=== PATIENT | female | born 1960 | race Caucasian/White ===

== ENCOUNTER 2017-08-26 08:06 | Day surgery (SDC) | payer BC ==
[2017-08-16 16:01] VITALS: BMI 41.0
[~2017-08-26] VITALS: Ht 170.2 cm; Wt 120.5 kg
[~2017-08-26 08:06] MED LIST: ASCO500T16 PO; ATOR-22 PO; CEFAZOLIN 3000MG IV PUSH 22.5 ML IV SCH; CHOL1000 PO; INDSR/120 PO; LACTATED RINGER'S 1000ML 1,000 ML IV SCH; NORT25CA PO; PRLSR20 PO; RANI300T2 PO; SENNTAB13 PO; SUMA100T16 PO; TRAM-10 PO; VLT75 PO
[2017-08-26 08:45] VITALS: BP 153/75; PULSE 69; TEMP 36.8; O2SAT 98; Ht 170.2 cm; Wt 120.5 kg
[2017-08-26 09:18] LABS: HEMOGLOBIN A1C 7.7 % (4.5-5.6)
[2017-08-26] MEDS ORDERED: ATROPINE SULFATE 0.1 MG/ML 5ML SYR IV PRN (09:45)
[2017-08-26] MEDS ORDERED: PHENYLEPHRINE 100MCG/ML 5ML SYR IV PRN (09:45)
[2017-08-26] MEDS ORDERED: NALOXONE HCL 0.4 MG/1 ML VIAL/CARP IV PRN (09:45)
[2017-08-26] MEDS ORDERED: FLUMAZENIL 0.1 MG/1 ML 10 ML VIAL IV PRN (09:45)
[2017-08-26] MEDS ORDERED: ONDANSETRON INJ 2 MG/ML 2 ML VIAL IV PRN ×2 (09:45→12:45)
[2017-08-26] MEDS ORDERED: HYDROmorphone INJ 2 MG/ML SYR/VIAL IV PRN (09:45)
[2017-08-26] MEDS ORDERED: MEPERIDINE HCL 25 MG/ML CARP IV PRN (09:45)
[2017-08-26] MEDS ORDERED: FENTANYL CITRATE INJ 50 MCG/1 ML 2 ML VIAL IV PRN (09:45)
[2017-08-26] MEDS ORDERED: EpHEDrine SULFATE INJ 50 MG/ML AMP IV PRN (09:45)
[2017-08-26] MEDS ORDERED: LABETALOL HCL IV 5 MG/ML 20ML IV PRN (09:45)
[2017-08-26] MEDS ORDERED: MIDAZOLAM HCL 1 MG/ML 2ML VIAL ONE (09:57)
[2017-08-26] MEDS ORDERED: FENTANYL CITRATE INJ 50 MCG/1 ML 2 ML VIAL ONE (09:57)
[2017-08-26] MEDS ORDERED: PROPOFOL IV EMULSION 10 MG/ML 20 ML VIAL IV ONE (09:57)
[2017-08-26] MEDS ORDERED: LIDOCAINE HCL 2% 2 ML VIAL (20MG/ML) ONE (09:57)
[2017-08-26] MEDS ORDERED: ROCURONIUM BROMIDE 10 MG/ML 5 ML VIAL IV ONE ×5 (09:57→11:46)
[2017-08-26] MEDS ORDERED: BUPIVACAINE 0.5 % 5 MG/1 ML MPF 30ML VIAL ONE (10:43)
[2017-08-26] MEDS ORDERED: HEPARIN SOD (PORCINE) 1000 UNIT/ML 10 ML VIAL ONE (10:43)
[2017-08-26] MEDS ORDERED: CEFAZOLIN SOD 1 GM VIAL ONE (10:44)
--- NOTE | 2017-08-26 10:48 | History & Physical Bridge Note ---
H&P Re-Evaluation Bridge Note: I have examined the patient, reviewed the History & Physical and in the interval since the performance of the History & Physical I have noted the following changes of clinical significance: No changes noted
[2017-08-26] MEDS ORDERED: DEXAMETHASONE SOD INJ 4 MG/ML VIAL ONE (11:46)
[2017-08-26] MEDS ORDERED: EpHEDrine SULFATE 50MG/5ML SYR ONE (11:46)
[2017-08-26] MEDS ORDERED: NEOSTIGMINE METHYLSULFATE 5 MG/5 ML SYR ONE (11:46)
[2017-08-26] MEDS ORDERED: ONDANSETRON INJ 2 MG/ML 2 ML VIAL ONE (11:46)
[2017-08-26] MEDS ORDERED: GLYCOPYRROLATE INJ 0.2 MG/ML VIAL ONE (11:46)
[2017-08-26] MEDS ORDERED: KETOROLAC TROMETHAMINE 30 MG/ML VIAL ONE (12:25)
[2017-08-26] MEDS ORDERED: OXYC-57 PO (12:30)
--- NOTE | 2017-08-26 12:31 | [facility] Post Operative Brief Note ---
Immediate Operative Summary Operative Date Aug 26, 2017. Pre-Operative Diagnosis Cholecystitis Post-Operative Diagnosis Same Procedure(s) Performed Laparoscopic Cholecystectomy Surgeon Dr Connor Swimming Pool Salesperson Surgeon(s) Nicole Smith PA-C Estimated Blood Loss 5ml Findings Consistent with Post-Op Diagnosis Specimens A. Gallbladder Drains None Anesthesia Type General Complication(s) none
--- NOTE | 2017-08-26 12:35 | Discharge Instructions ---
Discharge Instructions Date of Service Aug 26, 2017. Admission Reason for Admission: Cholelithiasis Discharge Discharge Diagnosis / Problem: same Discharge Goals Goal(s): Decrease discomfort, Improve function Activity Recommendations Activity Limitations: per Instructions/Follow-up section No heavy lifting over 10 pounds for 2 weeks No strenuous activity until cleared by surgeon No submerging incisions underwater for 2 weeks (no bathing, swimming, or hot tubs) No driving while taking narcotic pain medication or until you are pain free . Instructions / Follow-Up Instructions / Follow-Up You may shower in 24 hours. Leave steri strips on incision for 7 days and then remove. They may fall off on their own that is okay. Walking and light activity is encouraged to prevent blood clots forming You will be given narcotic pain medication as needed for moderate to severe pain. This medication may make you drowsy and can cause constipation. You can take OTC stool softener such as Colace to combat constipation. You may take extra strength Ibuprofen in between Percocet as needed for mild pain. When you are no longer taking Percocet you may take extra strength Tylenol as needed for pain. Follow-up in surgical office in 2 weeks, please call office at [phone] if you do not already have an appointment. Current Hospital Diet Patient's current hospital diet: Discharge Diet Recommended Diet: Regular Diet Procedures Procedures Performed: Laparoscopic Cholecystectomy Pending Studies Studies pending at discharge: yes List of pending studies: Gallbladder pathology, will be reviewed at follow up visit Laboratory Results Hemoglobin A1c Test 08/26/17 09:02 Range/Units Estimated Average Glucose 174 mg/dl Hemoglobin A1c 7.7 H 4.5-5.6 % Medical Emergencies . Who to Call and When: Medical Emergencies: If at any time you feel your situation is an emergency, please call 911 immediately. . Non-Emergent Contact Non-Emergency issues call your: Primary Care Provider, Surgeon Call Non-Emergent contact if: you have a fever, temperature is above 101, your pain is not controlled, your pain is worsening, your pain is unusual for you, wound has increased drainage, wound has increased redness, wound has increased pain . "Provider Documentation" section prepared by Nicole Smith. . [place] Drug Monitoring Program Search Results: patient reviewed within database, no issues identified
[2017-08-26] MEDS ORDERED: OXYCODONE/ACETAMINOPHEN 5-325 TAB PO PRN ×2 (12:45)
[2017-08-26] MEDS ORDERED: MoRPHine SULFATE 4 MG/ML 1 ML CARP\\VIAL IV PRN (12:45)
[2017-08-26] MEDS ORDERED: ACETAMINOPHEN 325 MG TAB PO PRN (12:45)
[2017-08-26] MEDS ORDERED: MoRPHine SULFATE 2 MG/ML CARP IV PRN ×2 (12:45)
--- NOTE | 2017-08-26 12:48 | Anesthesiology Progress Note ---
Anesthesia Post Op Note Date & Time Aug 26, 2017 at 12:48 Vital Signs Pain Intensity: 3 Vital Signs Past 12 Hours Date Time Temp Pulse Resp B/P (MAP) Pulse Ox O2 Delivery O2 Flow Rate FiO2 08/26/17 12:40 53 16 124/70 96 Oxymask 8 08/26/17 12:30 55 16 124/73 96 Oxymask 8 08/26/17 12:20 36.5 58 16 142/76 95 Oxymask 8 08/26/17 08:45 36.8 69 20 153/75 (101) 98 Room Air Notes Mental Status: alert / awake / arousable, participated in evaluation Pt Amnestic to Procedure: Yes Nausea / Vomiting: adequately controlled Pain: adequately controlled Airway Patency, RR, SpO2: stable & adequate BP & HR: stable & adequate Hydration State: stable & adequate Anesthetic Complications: no major complications apparent
--- NOTE | 2017-08-26 12:55 | OPERATIVE REPORT ---
DATE OF OPERATION: 08/26/2017 PREOPERATIVE DIAGNOSES: Cholelithiasis, chronic cholecystitis. POSTOPERATIVE DIAGNOSES: Same. PROCEDURE: Laparoscopic cholecystectomy. SURGEON: Miguel Connor MD. TOLL GATE TENDER: Nicole Smith PA-C. FINDINGS: The gallbladder had multiple adhesions of the omentum and of the duodenum. They were flimsy. The cystic duct was very narrow. The gallbladder was not dilated. There was no thickening of the wall. The liver was mild to moderately enlarged. The surface of the liver was smooth. The visible bowel appeared normal. TECHNIQUE: The patient was given a general anesthetic and the area was prepped and draped in the usual sterile fashion. A transverse incision was made below the umbilicus, carried down through the subcutaneous tissue to the fascia, which was grasped with 2 Diana clamps and incised between. The peritoneum was identified, incised, and the introducer was placed bluntly. The abdomen was then insufflated to a pressure of 15 mmHg with carbon dioxide. The upper midline, midclavicular and anterior axillary introducers were placed under direct vision through small skin incisions. Traction was placed on the gallbladder and the adhesions over the body and infundibulum portion of the gallbladder were taken down. Those were omental adhesions. That was done with blunt and cautery dissection where appropriate. When we got down to the infundibulum, there were adhesions of the duodenum to the infundibulum and neck of the gallbladder area. These adhesions were flimsy and were able to be taken down with blunt dissection only. There was no cautery used for that portion of the dissection. Once these were taken down, I was able to visualize the infundibulum and the gallbladder was elevated. Traction was placed on the infundibulum of the peritoneum and the lateral side was opened and peeled down towards the common bile duct. I then worked into the triangle of Calot and opened it. The infundibulum was dissected away from the liver on the lateral and medial side allowing for better mobility. Further fatty tissue and connective tissue was peeled down towards the common bile duct exposing the cystic duct. Cystic duct was then skeletonized and isolated in 360 degrees. Further dissection in the triangle of Calot and of the infundibulum away from the liver provided a good window. It also allowed me to confidently identify the cystic duct gallbladder junction. Three clips were placed on the proximal cystic duct, 1 near the gallbladder and it was divided. The cystic artery was then seen and isolated in the triangle of Calot. It was clamped twice proximally once near the gallbladder and divided. There was an additional tubular structure that was either a posterior branch of the artery or a large lymphatic. It was isolated, clamped and divided. The gallbladder was then peeled off the liver bed using electrocautery. It was placed into an Endobag and brought out through the upper midline incision with ease. That introducer was replaced. The liver edge was elevated. The subdiaphragmatic and subhepatic spaces were irrigated and the irrigation removed. The gallbladder bed of the liver was inspected. There was no bleeding. The previously placed clips were inspected and were intact. The gas was allowed to escape and the introducers were removed. The fascia of the umbilical and upper midline introducer sites was closed with an interrupted 0 Vicryl and skin of all the incisions was closed with 4-0 Monocryl in either an interrupted or running subcuticular fashion. The skin was anesthetized with 0.5% Marcaine. The skin was cleansed, dried, benzoin placed. Steri-Strips applied. The estimated blood loss was 5 mL. Sponge, needle and instrument counts were correct prior to closure. The patient tolerated the surgical procedure without complication and was transferred to recovery. I attest to the content of the Intraoperative Record and any orders documented therein. Any exception s are noted below.
[2017-08-26 13:10] VITALS: BP 123/59; PULSE 56; PULSE 68; TEMP 36.6; O2SAT 94
[2017-08-26 13:40] VITALS: BP 108/55; PULSE 59; TEMP 36.6; O2SAT 97
[2017-08-26] MEDS ORDERED: OXYCODONE/ACETAMINOPHEN 5-325 TAB ONE (13:46)
[2017-08-26 14:10] VITALS: BP 110/62; PULSE 63; TEMP 37.1; O2SAT 94
[2017-08-26 14:40] VITALS: BP 143/78; PULSE 60; TEMP 36.8; O2SAT 94
== END 2017-08-26 14:56 | disposition home or self-care (01) ==
LOC: C.ACU 08:06
PROVIDERS: ATTEND Surgery
DX: K80.10 Calculus of gallbladder with chronic cholecystitis without obstruction (principal); E78.5 Hyperlipidemia, unspecified; K21.9 Gastro-esophageal reflux disease without esophagitis; M19.90 Unspecified osteoarthritis, unspecified site; Z79.899 Other long term (current) drug therapy; Z98.890 Other specified postprocedural states

== ENCOUNTER 2018-11-28 04:46 | Inpatient (IN) ==
--- NOTE | 2018-11-10 15:21 | PAT Medication Instructions ---
Medication Instructions Date of Service November 10, 2018 Home Medications atorvastatin 20 mg PO HS diclofenac sodium 75 mg PO BID docusate sodium [Stool Softener] 100 mg PO BID metformin 850 mg PO BID nortriptyline 25 mg PO HS omeprazole 40 mg PO HS propranolol 120 mg PO HS ranitidine HCl 300 mg PO QAM ASK your surgeon for instructions diclofenac sodium 75 mg PO BID DO NOT take the morning of surgery docusate sodium [Stool Softener] 100 mg PO BID metformin 850 mg PO BID Take morning of surgery With a small sip of water, OTHERWISE NOTHING TO EAT OR DRINK AFTER MIDNIGHT: ranitidine HCl 300 mg PO QAM Take evening before surgery atorvastatin 20 mg PO HS docusate sodium [Stool Softener] 100 mg PO BID metformin 850 mg PO BID nortriptyline 25 mg PO HS omeprazole 40 mg PO HS propranolol 120 mg PO HS Other Notes If you have any questions please call us at [phone] or [phone] or [phone] or [phone]
--- NOTE | 2018-11-10 15:30 | Anesthesiology Consultation ---
Date of Service November 10, 2018 Assessment & Plan (1) Encounter for pre-operative examination: CHECK BSG AM DOS S/P LAP GIANCARLO 2017 [facility] = MAC 3, ETT 7.0 GV I, ATRAUMATIC DVL X 1 Chart Review Chart Review: Acceptable Risk for Surgery and Patient seen in Pre Admission Testing Teaching & Discussion Instructed NPO after midnight before surgery, except medications with 15 cc of water. Medication instructions provided according to the PAT guidelines. History Surgery Operation Date: 11/28/18 12:30 Proposed Procedures p Left Total Hip Replacement - Larry Dyson MD Height/Weight Height: 5 ft 7 in Weight: 113.4 kg Allergies Allergy/AdvReac Type Severity Reaction Status Date / Time No Known Allergies Allergy Unverified 11/06/18 15:32 Medications Home Medications Medication Instructions Recorded Confirmed Last Taken atorvastatin 20 mg PO HS 11/06/18 11/06/18 11/05/18 diclofenac sodium 75 mg PO BID 11/06/18 11/06/18 11/06/18 docusate sodium [Stool Softener] 100 mg PO BID 11/06/18 11/06/18 11/06/18 metformin 850 mg PO BID 11/06/18 11/06/18 11/06/18 nortriptyline 25 mg PO HS 11/06/18 11/06/18 11/05/18 omeprazole 40 mg PO HS 11/06/18 11/06/18 11/05/18 propranolol 120 mg PO HS 11/06/18 11/06/18 11/05/18 ranitidine HCl 300 mg PO QA 11/06/18 11/06/18 11/06/18 Past Medical History Medical History Acid reflux Diabetes Fatty liver High cholesterol History of back problems HX 2 BULGING DISCS AND INJECTIONS 19 YR AGO Migraine Obesity Snores LOUD, PT REPORTS SLEEP STUDY WAS SUGGESTED BUT NOT COMPLETED Exercise / Class Metabolic Activity III < 4 Walking/Shop/Light housework (Limited activity, no CP or SOB with stairs but doesn't do often.) Past Family History Family History Father Family history of renal cancer Family history of bladder cancer Aunt Family history of breast cancer in mother Family history of skin cancer Past Surgical History Surgical History History of cholecystectomy History of colonoscopy History of endoscopy History of tubal ligation Past Anesthesia History No Hx of Anesthesia Complications and No Family Hx of Anesthesia Complications S/P LAP GIANCARLO 2017 [facility] = MAC 3, ETT 7.0 GV I, ATRAUMATIC DVL X 1 History of PONV No Hx of PONV and No Hx of Motion Sickness Social History Smoking Status: Never smoker Do You Dip or Chew Tobacco: No Hx Alcohol Use: No Hx Substance Use: No substance use type: does not use Review of Systems Pt denies any recent chest pain, shortness of breath, palpitations, cough, fever or URI. Physical Exam Vital Signs BP: 111/76 P: 64bpm SPO2: 98% RA T: 98.0 F R: 16 ENMT Mouth: + dentures and + edentulous Thyromental Distance: < 3.5 Finger Breadths (3) Mallampati Class: III Neck normal visual inspection; neck extension not limited Respiratory normal respiratory effort Auscultation: lungs clear to auscultation bilaterally Cardiovascular Rate/Rhythm: regular rate and regular rhythm Heart Sounds: no murmur Extremities: no edema Testing Laboratory Results 11/10/18 15:24 11/10/18 15:24 11/10/18 11/10/18 11/10/18 15:24 15:24 15:24 PT 10.2 INR 1.0 APTT 24.2 Hemoglobin A1c 6.7 H Blood Type B Positive Antibody Screen NEGATIVE Electrocardiogram Date: 11/10/18 Findings: + NSR @ (62) Chest X-Ray Date: 11/10/18 Findings: + NAD
[2018-11-10 16:09] LABS: Basophils # (auto) 0.03 K/uL (0-0.2); Basophils % (auto) 0.6 %; Eosinophils # (auto) 0.22 K/uL (0-0.5); Eosinophils % (auto) 4.4 %; Hematocrit (blood only) 38.2 % (37-47); Hemoglobin 12.5 g/dL (12.0-16.0); Lymphocytes # (auto) 1.82 K/uL (1.2-3.4); Lymphocytes % (auto) 36.3 %; Mean Corpuscular Hgb Conc 32.7 g/dL (32-36); Mean Corpuscular Volume 88.4 fL (80-100); Mean Platelet Volume 9.4 fL (7.4-10.4); Monocytes # (auto) 0.38 K/uL (0.11-0.59); Monocytes % (auto) 7.6 %; Neutrophils # (auto) 2.56 K/uL (1.4-6.5); Neutrophils % (auto) 51.1 %; Platelet Count 205 K/uL (130-400); RDW Coefficient of Variation 12.5 % (11.5-14.5); RDW Standard Deviation 40.2 fL (36.4-46.3); Red Blood Count 4.32 M/uL (4.2-5.4); White Blood Count 5.01 K/uL (4.8-10.8)
[2018-11-10 16:17] LABS: BUN Creatinine Ratio 15.6 (10-20); Calcium 9.5 mg/dl (8.5-10.1); Creatinine Clr Calc Pharmacy 79.7 ml/min; Est GFR (African American) 71.9; Est GFR (Non-African American) 62.1; Potassium 4.9 mmol/L (3.5-5.1)
[2018-11-10 16:23] LABS: Partial Thromboplastin Ratio 0.9; Partial Thromboplastin Time 24.2 Seconds (21.0-31.0); Prothrombin Time 10.2 Seconds (9.0-12.0)
--- NOTE | 2018-11-10 19:03 | XRay Report ---
TWO VIEW CHEST CLINICAL HISTORY: Preoperative examination. FINDINGS: PA and lateral chest radiographs are obtained. No prior studies are available for compariso n at the time of dictation. The cardiomediastinal silhouette is unremarkable. The lungs and pleural spaces are clear. There is no pneumothorax. The bony thorax appears intact. Surgical clips are noted in the upper abdomen. IMPRESSION: No active disease in the chest. Electronically signed by: Konstantin Chris M.D. 11/10/2018 7:02 PM
[2018-11-11 06:06] LABS: Estimated Average Glucose 146 mg/dl; Hemoglobin A1C 6.7 % (4.5-5.6)
--- NOTE | 2018-11-22 09:59 | History and Physical Report ---
DATE OF ADMISSION: 11/28/2018 CHIEF COMPLAINT: Bilateral hip pain and discomfort, left side greater than right. HISTORY OF PRESENT ILLNESS: The patient is a 58-year-old white female [place] who presents for treatment of her hips. She has got a 1 year history of significantly increasing pain and discomfort in both hips, left side a bit worse than the right. She describes pain in the groin area, it radiates down to her knee. She has been through various medicines which have caused GI irritation. They take the edge off at best. She does limp. The more she walks, the more she limps. She has difficulty putting her shoes and socks on. Cannot walk more than a couple blocks. She would like to proceed with surgical treatment. PAST MEDICAL HISTORY: Significant for: 1. Diabetes with hemoglobin A1c of 6.7. 2. Elevated cholesterol. 3. Gastroesophageal reflux disease. 4. Obesity, BMI of 40. 5. Back pain. PAST SURGICAL HISTORY: Previous surgeries include: 1. Tubal ligation. 2. Cholecystectomy. ALLERGIES: None. CURRENT MEDICINES: 1. Ranitidine. 2. Diclofenac. 3. Metformin. 4. Stool softener. 5. Lipitor. 6. Propranolol. 7. Nortriptyline. 8. Omeprazole. SOCIAL HISTORY: A 58-year-old white female. She is from [place]. She works as a labor. She has 3 children. Does not smoke. FAMILY HISTORY: Significant for breast cancer, renal cancer and diabetes. REVIEW OF SYSTEMS: Significant for diabetes for a year. No chest pain or shortness of breath. No history of DVT or PE. No known bleeding problems. PHYSICAL EXAMINATION: GENERAL: Shows a pleasant middle-aged female, looks to be in reasonably good health. HEENT: Benign. NECK: Supple, no lymphadenopathy. LUNGS: Clear to auscultation. HEART: Has a regular rate and rhythm. ABDOMEN: Soft, nontender, nondistended. EXTREMITIES: Grossly neurovascularly intact except as follows: Examination of the hips reveal patient walks with an antalgic gait. She does limp a little bit more on the left side. Leg lengths clinically appear pretty equal. She does have pain and stiffness with hip motion. I can internally rotate to neutral on both sides and external rotation 25 degrees. This recreates pain. No knee effusions in either side. She is neurologically intact. X-RAYS: X-rays reveal advanced bilateral hip DJD. She has got complete loss of the joint space on both sides. She has got cystic changes in the femoral head and acetabulum. This has progressed significantly over the past year. ASSESSMENT: A 58-year-old white female with advanced bilateral hip degenerative joint disease, gotten significantly worse over the past year. She has failed conservative treatment. She would like to proceed with left hip replacement. PLAN: We will take her to the operating room and do a left total hip replacement. The risks and benefits of this procedure were explained to the patient including but not limited to DVT, PE, , infection, neurological injury, vascular injury, bleeding problem, pain, limited range of motion, stiffness, failure to relieve symptoms, incomplete relief of symptoms, need for further surgery in future, fracture, leg length inequality, nerve palsy, etc. The patient understands and desires to proceed. Informed consent was obtained. We did talk about holding her metformin the morning of surgery and diclofenac 10 days preop. She takes propranolol for headaches, but we will have her take that in the morning regardless. She is planning to be discharged home using [facility] home health program.
[2018-11-28] MEDS ORDERED: LR 500ML BOLUS, THEN 15ML/HR IV SCH (06:00)
[2018-11-28] MEDS ORDERED: FAMOTIDINE 20 MG TAB PO SCH (06:00)
[2018-11-28] MEDS ORDERED: GABAPENTIN 300 MG x 2 PO SCH (06:00)
[2018-11-28] MEDS ORDERED: SCOPOLAMINE 1.5 MG TDSY TD SCH (06:00)
[2018-11-28] MEDS ORDERED: METOCLOPRAMIDE HCL 10 MG TABLET PO SCH (06:00)
[2018-11-28] MEDS ORDERED: LR 60ML/HR IV SCH (06:00)
[2018-11-28] MEDS ORDERED: CEFAZOLIN 2000MG 2,000 MG/15 ML SYR IV SCH (06:00)
[2018-11-28] MEDS ORDERED: TRANEXAMIC ACID 1,000 MG **IV Pre-op IV SCH (06:00)
[2018-11-28] MEDS ORDERED: ACETAMINOPHEN 500 MG TAB PO SCH (06:00)
[2018-11-28] MEDS ORDERED: LIDOCAINE HCL 2% 2 ML VIAL/AMP(20MG/ML) INFIL ONE (06:20)
[2018-11-28] MEDS ORDERED: PROPOFOL IV EMULSION 10 MG/ML 20 ML VIAL IV ONE ×2 (06:21→07:31)
[2018-11-28] MEDS ORDERED: MIDAZOLAM HCL 1 MG/ML 2ML VIAL ONE (06:21)
[2018-11-28] MEDS ORDERED: fentaNYL citrate 100 MCG/2 ML VIAL ONE (06:21)
[2018-11-28] MEDS ORDERED: BUPIVACAINE 0.5 % 5 MG/1 ML PF 10ML VIAL ONE (06:28)
[2018-11-28] MEDS ORDERED: MoRPHine SULFATE PF 1 MG/ML 10 ML AMP/VIAL ONE (06:34)
[2018-11-28] MEDS ORDERED: BACITRACIN INJ 50,000 UNIT VIAL ONE (06:35)
[2018-11-28] MEDS ORDERED: BUPIVACAINE/EPINEPHRINE 0.5% MPF 1:200,000 30 ML VIAL ONE (06:35)
[2018-11-28] MEDS ORDERED: LACTATED RINGER'S 500 ML IV PRN (06:38)
[2018-11-28] MEDS ORDERED: MoRPHine SULFATE 2 MG/ML CARP IV PRN (06:38)
[2018-11-28] MEDS ORDERED: MoRPHine SULFATE PF 1 MG/ML 10 ML AMP/VIAL INT SPINAL ONE (06:38)
[2018-11-28] MEDS ORDERED: NALOXONE HCL 1 MG in SODIUM CHLORIDE 0.9% 1000ML 1,000 ML IV PRN (06:38)
[2018-11-28] MEDS ORDERED: DiphenhydrAMINE HCL 50 MG/ML VIAL IV PRN (06:38)
[2018-11-28] MEDS ORDERED: PROMETHAZINE HCL 12.5 MG in SODIUM CHLORIDE 0.9% 50 ML IV PRN (06:38)
[2018-11-28] MEDS ORDERED: NALBUPHINE HCL INJ 10 MG/ML AMP IV PRN (06:38)
[2018-11-28] MEDS ORDERED: NALOXONE HCL 0.08 MG in SYRINGE 1.8 ML IV PRN (06:38)
[2018-11-28] MEDS ORDERED: NALOXONE HCL 0.4 MG/1 ML VIAL/CARP IV PRN ×2 (06:38→11:08)
[2018-11-28] MEDS ORDERED: ONDANSETRON INJ 2 MG/ML 2 ML VIAL IV PRN ×2 (06:38→11:08)
[2018-11-28] MEDS ORDERED: NO NARCOTICS OR SEDATIVES SCH (06:45)
[2018-11-28] MEDS ORDERED: SODIUM CHLORIDE 0.9% 1000ML 1,000 ML IV SCH (06:45)
--- NOTE | 2018-11-28 06:50 | History & Physical Bridge Note ---
Date of Service November 28, 2018 History & Physical Bridge Note I have examined the patient, reviewed the History & Physical and in the interval since the performance of the History & Physical I have noted the following changes of clinical significance: no changes noted
[2018-11-28] MEDS ORDERED: DEXAMETHASONE SOD INJ 4 MG/ML VIAL ONE (07:20)
[2018-11-28] MEDS ORDERED: ONDANSETRON INJ 2 MG/ML 2 ML VIAL ONE (07:20)
[2018-11-28] MEDS ORDERED: PHENYLEPHRINE 100MCG/ML 5ML SYR ONE (07:20)
[2018-11-28] MEDS ORDERED: GLYCOPYRROLATE 0.2 MG/ML VIAL ONE (07:46)
[2018-11-28] MEDS ORDERED: ATROPINE SO4 1 MG/ML 1ML VIAL ONE (07:46)
--- NOTE | 2018-11-28 08:29 | Post Operative Brief Note ---
Immediate Post Op Note v1 Date of Surgery November 28, 2018 Pre & Post Diagnosis Operation Date: 11/28/18 07:00 Pre-Op Diagnosis: Left Hip Advanced Degenerative Joint Disease Post-Op Diagnosis: Left Hip Advanced Degenerative Joint Disease Procedure Operation Date: 11/28/18 07:00 Actual Procedures p Left Total Hip Arthroplasty--Uncemented(Left) - Larry Dyson MD Surgeon Larry Dyson MD Shipping And Receiving Weigher Stefani,PAC Estimated Blood Loss 300 Findings Consistent with Post-Op Diagnosis Fluids 1000 cc Specimens Left Femoral Head Drains Jane Catheter (A 16 Bulgarian jane catheter was inserted by ED Willis, without difficulty, clear yellow urine obtained, output to be monitored by Jennifer brock.) Anesthesia Type Spinal MAC Complications none Disposition Accompanied Patient To Recovery: Yes Disposition: Recovery Room
[2018-11-28] MEDS ORDERED: ALBUMIN HUMAN 5% 12.5 GM/250 ML VIAL IV ONE (08:51)
[2018-11-28] MEDS: ePHEDrine sulfate 50 MG/ML AMP IV PRN ×2 (08:51→09:09)
[2018-11-28] MEDS ORDERED: ALBUMIN 5% 250 ML IV SCH (09:00)
--- NOTE | 2018-11-28 09:22 | XRay Report ---
XR hip 1V LT w pelvis HISTORY: 58 years-old Female IN PACU - A/P PELVIS and LATERAL HIP left hip total joint arthroplasty . History of degenerative joint disease COMPARISON: Pelvis and left hip radiographs 10/20/2018 TECHNIQUE: AP view of the pelvis with crosstable lateral view of the left hip FINDINGS: Left hip total joint arthroplasty demonstrates satisfactory alignment. Expected postsurgical soft tis eileen swelling and deep tissue air with lateral skin ty about the left hip. No acute fracture or r etained foreign body. Moderate to severe degenerative changes about the right hip. IMPRESSION: Satisfactory alignment of the left hip total joint arthroplasty. The above report was generated using voice recognition software. It may contain grammatical, syntax o r spelling errors. Electronically signed by: Jim Kenyon M.D. 11/28/2018 9:21 AM
--- NOTE | 2018-11-28 09:30 | Operative Report ---
DATE OF OPERATION: 11/28/2018 SURGEON: Larry Dyson MD PAPER SEALER: ED Padilla PREOPERATIVE DIAGNOSIS: Left hip degenerative joint disease. POSTOPERATIVE DIAGNOSIS: Left hip degenerative joint disease. PROCEDURE PERFORMED: Left uncemented ceramic on highly cross-linked polyethylene total hip arthroplasty. COMPLICATIONS: None. ESTIMATED BLOOD LOSS: 300 mL. FLUID REPLACEMENT: 1000 mL crystalloid fluid replacement. ANESTHESIA: Spinal. DRAINS: None. SPECIMENS: Left femoral head sent for pathology. OPERATIVE INDICATIONS: The patient is a 58-year-old white female who has had a fairly long history of bilateral hip pain and discomfort, left side greater than right. She has been through extensive conservative treatment without adequate relief. She actually had problems with GI irritation due to NSAIDs. X-ray showed advanced left hip DJD. She would like to proceed with surgical treatment. OPERATIVE FINDINGS: Operative findings revealed advanced left hip DJD. She had extensive grade 4 changes of the femoral head and acetabulum. Fairly significant medial osteophyte. Moderate size joint effusion. OPERATIVE IMPLANTS: Operative implants consist of: 1. A Biomet G7 size 52 mm acetabular shell. 2. An apex hole eliminator. 3. 6.5 cancellous acetabular screws, 1 at 35 mm length and 1 at 25 mm length. 4. A highly cross-linked polyethylene liner with 52 mm outer diameter and 32 mm inner diameter. 5. DePuy Corail size 10 KLA femoral stem. 6. A +5/32 mm ceramic articular ball. OPERATIVE PROCEDURE: The patient was taken to the operating room, identified and placed on the operating table in supine position. All contact areas were appropriately padded. IV antibiotics provided by anesthesia team. A spinal anesthetic had been implemented in the holding area. Hatfield catheter was placed in sterile fashion. The patient was then placed in the right lateral decubitus position. An axillary roll was placed. Stlberg hip positioner was used for positioning. Left hip and leg were then prepped and draped in usual sterile fashion. A posterolateral approach to the left hip was then performed through a curvilinear incision centered over the greater trochanter. Sharp dissection was carried through subcutaneous tissue down to the level of the IT band and gluteal fascia. There was a very large thick soft tissue envelope. The IT band and gluteal fascia were then incised longitudinally in line with skin incision. The underlying greater trochanteric bursa was excised. The piriformis and external rotators were carefully tagged and taken off the posterior aspect of the hip joint capsule. A posterior capsulotomy was then performed leaving a large flap for later repair. Hip was internally rotated and dislocated. Femoral neck osteotomy cut was made with the final cut about 5 mm above the lesser trochanter. Femoral head was removed and sent for pathology. The femur was retracted anteriorly. Attention was then drawn to the acetabulum. The acetabular labrum was excised. The pulvinar fat was excised. Sequential reaming of the acetabulum was then performed beginning with a size 45 and progressing up to 51. We tried to put the 52 cup in, but could not get in, so I did ream to 52 and then placed the 52 cup. It was fixed with two 6.5 cancellous acetabular screws. A trial liner was placed. Attention was then drawn to the femur. The proximal femur was entered with a cookie cutter followed by canal finder. I then broached beginning with a size 8 and progressing up to a 10. The 10 fit quite tightly and had good rotational control. We have not elected to use this implant. The calcar reamer was used to smoothen off the calcar. I then trialed the hip and +5 articular ball seemed to recreate soft tissue fairly good and the hip was fully stable in full extension and external rotation, flexion to 90 degrees, internal rotation over 50 degrees. There was still a little bit soft tissue laxity, but I did not feel like I could really lengthen her any further due to a leg length issues. We elected to place these implants. All trial implants were removed. An apex hole eliminator was placed. Highly cross-linked polyethylene liner was placed. A DePuy Corail size 10 KLA femoral stem was impacted in position. The +5/32 mm ceramic articular ball was placed. Hip was located and once again found to be stable. Attention was then drawn toward closing. The wound was irrigated with copious amounts of pulsatile lavage solution. I did inject locally with about 60 mL of 0.5% Marcaine with epinephrine. The posterior capsule and external rotators were then repaired through drill holes in the posterior trochanter with #2 Ti-Cron suture. The IT band and gluteal fascia were then closed with #1 PDS suture in running fashion. The subcutaneous tissues were then closed with 2 layers with the deep layer #2 Vicryl suture in buried interrupted fashion followed by subQ tissues and with 2-0 Dexon suture in a subcuticular fashion. The skin was closed with ty. Sterile dressing composed of Xeroform, 4 x 4s, sterile ABD pad and foam tape was applied. The patient was then transferred to the recovery room in stable condition. The patient tolerated the procedure well with no complications. All needle and sponge counts were correct at the end of the operation. I attest to the content of the Intraoperative Record and any orders documented therein. Any exception s are noted below.
--- NOTE | 2018-11-28 10:42 | Anesthesiology Progress Note ---
Date of Service November 28, 2018 Anesthesia Post Procedure Vital Signs Vital Signs: Temp Pulse Pulse Resp BP Pulse Ox 11/28/18 10:30 71 19 111/63 100 11/28/18 10:20 36.2 C L 69 15 103/57 L 100 11/28/18 10:10 69 18 98/62 L 100 11/28/18 10:00 67 16 102/59 L 100 11/28/18 09:50 69 18 98/53 L 100 11/28/18 09:40 68 20 100/52 L 100 11/28/18 09:30 69 19 99/56 L 100 11/28/18 09:20 69 16 104/53 L 100 11/28/18 09:10 72 18 104/57 L 100 11/28/18 09:00 74 19 89/37 L 100 11/28/18 08:50 76 17 83/56 L 100 11/28/18 08:40 76 17 79/52 L 100 11/28/18 08:32 36.3 C L 76 17 71/42 L 100 11/28/18 05:55 36.8 C 68 20 120/75 95 Pain Intensity Left Hip: Pain Intensity: 0 Transfer of Care Handoff Completed per policy Notes Mental Status: alert / awake / arousable Patient Amnestic to Procedure: Yes Nausea / Vomiting: adequately controlled Pain: adequately controlled Airway Patency, RR, SpO2: stable & adequate (Improved after fluids and prolonged PACU stay. Pt never symptomaric from slightly lower bp) BP & HR: stable & adequate Hydration State: stable & adequate Neuraxial Anesthesia: was administered and sensory block is resolving Anesthetic Complications: no major complications apparent and Pt Satisfied with anesthetic care
[2018-11-28] MEDS ORDERED: DEXTROSE 50% 50 ML SYRINGE IV PRN (11:08)
[2018-11-28] MEDS ORDERED: PHARMACY GLYCEMIC MGMT CONSULT STA (11:08)
[2018-11-28] MEDS ORDERED: GLUCOSE 40% GEL 15 GM TUBE PO PRN (11:08)
[2018-11-28] MEDS ORDERED: GLUCAGON FOR INJ 1 MG VIAL SQ PRN (11:08)
[2018-11-28] MEDS ORDERED: OXYCODONE HCL IR 5 MG TAB (IMMEDIATE RELEASE) PO PRN (11:08)
[2018-11-28] MEDS ORDERED: MAGNESIUM HYDROXIDE SUSP 30 ML UDC PO PRN (11:08)
[2018-11-28] MEDS ORDERED: METOCLOPRAMIDE HCL INJ 5 MG/ML 2 ML VIAL IV PRN (11:08)
[2018-11-28] MEDS ORDERED: GLUCOSE 10 TABS/TUBE PO PRN (11:08)
[2018-11-28] MEDS ORDERED: BISACODYL 10 MG SUPP PR PRN (11:08)
[2018-11-28] MEDS ORDERED: CARBOHYDRATES FOR HYPOGLYCEMIA PO PRN (11:08)
[2018-11-28] MEDS ORDERED: ALUMINUM/MAGNESIUM SUSP 30 ML UDC PO PRN (11:08)
[2018-11-28] MEDS ORDERED: DOCUSATE SODIUM 100 MG CAP PO SCH (11:08)
[2018-11-28] MEDS ORDERED: HYDROmorphone INJ 0.5 MG/0.5 ML SYR IV PRN (11:08)
[2018-11-28] MEDS ORDERED: PHARMACY GLYCEMIC MGMT CONSULT PRN (11:34)
[2018-11-28] MEDS ORDERED: COUGH DROP (SUGAR FREE) LOZ 24 LOZ/1 BOX BUCCAL PRN (12:44)
[2018-11-28] MEDS ORDERED: COUGH DROP (SUGAR FREE) LOZ 24 LOZ/1 BOX BUCCAL ONE (12:46)
[2018-11-28] MEDS: MULTIVITAMIN TAB PO SCH (12:48)
[2018-11-28] MEDS: KETOROLAC 30 MG/ML VIAL IV SCH ×3 (12:48→23:53)
[2018-11-28] MEDS: ASPIRIN 81 MG ECTAB PO SCH ×2 (12:49→21:34)
[2018-11-28] MEDS: SODIUM CHLORIDE 0.9% 1000ML 1,000 ML IV SCH ×2 (12:54→21:40)
[2018-11-28] MEDS: INSULIN ASPART 100 UNITS/ML 3 ML PEN SC SCH ×3 (13:21→21:44)
[2018-11-28] MEDS: CEFAZOLIN 2000MG 2,000 MG/15 ML SYR IV SCH ×2 (13:28→21:35)
[2018-11-28] MEDS: ACETAMINOPHEN 500 MG TAB PO SCH ×2 (13:28→21:34)
[2018-11-28] MEDS ORDERED: INSULIN GLARGINE SOLOSTAR 100 UNITS/ML 3 ML PEN SC ONE ×3 (13:30→15:30)
--- NOTE | 2018-11-28 14:14 | Pharmacy Report ---
Glycemic Control Consultation - Date of Service November 28, 2018 - Scope Scope: Glycemic Pharmacist consulted by Dr Dyson on 11-28 for glycemic control and to write orders per [facility] inpatient glycemic control protocol - Objective Weight: 113.4 kg Accuchecks BSG (last 24hrs): 11/28/18 11/28/18 11/28/18 05:45 08:41 12:14 POC Glucose 112 H 140 H 153 H HbA1c: Hemoglobin A1c 6.7 % (4.5-5.6) H 11/10/18 15:24 - Recent Pertinent Medications Outpatient Anti-diabetic Regimen: * metformin 850 mg BID * A1c = 6.7 % 11/10/18 Risk Factors for Insulin Resistance: * Steroids: dex 4 iv in OR * Recent Surgery: s/p hip arthroplasty * Diet: T2DM - Assessment & Plan Assessment & Plan: ASSESSMENT: * 58 year old female now s/p hip arthroplasty. PMHx significant for type 2 diabetes (only on metformin at home), hld, GERD, obesity * POD 0 - did receive dexamethasone in OR anticipate steroid induced hyperglycemia * Will utilize basal/bolus dosing post op and use stress of 3 for CF/CR since patient receiving steroids * Of note, only 14 gm of CHO consumed during lunchtime - unclear if poor appetite, may have scale for Lantus due to decreased po intake PLAN FOR INPATIENT GLYCEMIC CONTROL: * Holding outpatient oral diabetes medications * Basal insulin * Lantus 15 units for BSG <160 mg/dL * Lantus 20 units for BSG 160 or greater * Bolus insulin * NovoLog per scale ACHS or Q6hrs while NPO * Goal Range: Low 110 mg/dL - High 140 mg/dL * Correction Factor: 15 mg/dL/unit * Nutritional / Prandial insulin per carb ratio of 1 unit per 5 grams CHO consumed * Please note that the plan above was derived based on current level of insulin resistance and hospital stress. These recommendations are appropriate for inpatient admission only. Plan of care upon discharge will need to be reassessed to avoid potential outpatient hypo/hyperglycemia. Thank you.
[2018-11-28] MEDS ORDERED: TRANEXAMIC ACID 1,000 MG in 0.9 % SODIUM CHLORIDE 100 ML IV SCH (14:30)
[2018-11-28] MEDS: CHECK SCOPOLAMINE PATCH PLACEMENT SCH ×2 (17:02→23:53)
[2018-11-28] MEDS: ASCORBIC ACID 500 MG TAB PO SCH (18:00)
[2018-11-28] MEDS: FERROUS GLUCONATE 324 MG TAB PO SCH (18:00)
--- NOTE | 2018-11-28 18:35 | Progress Note ---
DATE: 11/28/2018 SUBJECTIVE: A 58-year-old white female postop from a left hip replacement. She is doing well. Not having any pain yet. No chest pain or shortness of breath. Not feeling dizzy or lightheaded. OBJECTIVE: VITAL SIGNS: Temperature 36.5. Vital signs stable. GENERAL: Reveals a pleasant, middle-aged female. She is sitting up in bed and talking to her . She looks comfortable. LUNGS: Clear to auscultation. HEART: Regular rate and rhythm. ABDOMEN: Soft, nontender, nondistended. EXTREMITIES: Grossly neurovascularly intact except as follows. Examination of the left leg reveals leg lengths equal. Hip is located. Dressing is clean, dry and intact. She can dorsiflex and plantarflex her foot appropriately. She is neurologically intact. X-RAYS: X-rays of the left hip from Recovery Room reviewed. She has left uncemented total hip arthroplasty. Components looked to be good position. No signs of problems. ASSESSMENT: A 58-year-old female postop from a left hip replacement, doing well. Hip is located. Pain is controlled. She is neurologically intact. PLAN: 1. DVT prophylaxis including thigh-high TEDs, SCDs, and aspirin twice a day. 2. PT/OT. Weight bear as tolerated. Left total hip protocol. 3. Pain control, doing well with current pain regimen. 4. IV antibiotics x24 hours. 5. Disposition: Plan to discharge to home with some home health once adequately recovered.
[2018-11-28] MEDS: SENNA 8.6 MG TAB PO SCH (21:33)
[2018-11-28] MEDS: ATORVASTATIN 20 MG TAB PO SCH (21:33)
[2018-11-28] MEDS: PANTOprazole 40 MG TAB PO SCH (21:34)
[2018-11-28] MEDS: NORTRIPTYLINE HCL 25 MG CAP PO SCH (21:34)
[2018-11-28] MEDS: DOCUSATE SODIUM 100 MG CAP PO SCH (21:34)
[2018-11-28] MEDS: PROPRANOLOL HCL 60 MG LA CAP PO SCH (21:42)
[2018-11-29] MEDS ORDERED: DC INTRASPINAL MORPHINE SCH (00:38)
[2018-11-29] MEDS: INSULIN ASPART 100 UNITS/ML 3 ML PEN SC SCH ×6 (04:34→21:45)
[2018-11-29] MEDS: KETOROLAC 30 MG/ML VIAL IV SCH ×4 (06:06→23:34)
[2018-11-29] MEDS: ACETAMINOPHEN 500 MG TAB PO SCH ×3 (06:06→21:39)
[2018-11-29 06:57] LABS: Hematocrit (blood only) 28.4 % (37-47); Hemoglobin 9.3 g/dL (12.0-16.0); Immature Granulocytes # (auto) 0.01 K/uL (0.00-0.02); Immature Granulocytes % (auto) 0.2 %; Mean Corpuscular Hgb Conc 32.7 g/dL (32-36); Mean Corpuscular Volume 88.8 fL (80-100); Mean Platelet Volume 9.5 fL (7.4-10.4); Monocytes % (auto) 7.6 %; Neutrophils # (auto) 3.74 K/uL (1.4-6.5); Neutrophils % (auto) 71.2 %; Platelet Count 175 K/uL (130-400); RDW Coefficient of Variation 12.3 % (11.5-14.5); RDW Standard Deviation 39.8 fL (36.4-46.3); White Blood Count 5.25 K/uL (4.8-10.8)
[2018-11-29 07:14] LABS: BUN Creatinine Ratio 13.9 (10-20); Calcium 8.5 mg/dl (8.5-10.1); Creatinine Clr Calc Pharmacy 80.5 ml/min; Est GFR (African American) 72.8; Est GFR (Non-African American) 62.8; Potassium 3.7 mmol/L (3.5-5.1)
[2018-11-29] MEDS: CHECK SCOPOLAMINE PATCH PLACEMENT SCH ×3 (08:42→23:34)
[2018-11-29] MEDS: ASCORBIC ACID 500 MG TAB PO SCH ×2 (08:43→17:30)
[2018-11-29] MEDS: FERROUS GLUCONATE 324 MG TAB PO SCH ×2 (08:43→17:30)
[2018-11-29] MEDS: DOCUSATE SODIUM 100 MG CAP PO SCH ×2 (08:43→21:40)
[2018-11-29] MEDS: ASPIRIN 81 MG ECTAB PO SCH ×2 (08:44→21:40)
[2018-11-29] MEDS: TAPENTADOL HCL ER 50 MG TABCR PO SCH ×2 (08:45→20:03)
[2018-11-29] MEDS: MULTIVITAMIN TAB PO SCH (09:05)
--- NOTE | 2018-11-29 09:16 | Progress Note ---
DATE: 11/29/2018 SUBJECTIVE: A 58-year-old white female postop day 1 from a left hip replacement. She is doing pretty well. Not much pain. No chest pain or shortness of breath. Not feeling dizzy or lightheaded. OBJECTIVE: VITAL SIGNS: Temperature is 36.7. Vital signs stable. GENERAL: Physical examination shows a pleasant, middle-aged female. She is sitting up in bed, looks reasonably comfortable. EXTREMITIES: Examination of the left leg reveals leg lengths to be equal. Dressing is clean, dry and intact. Thigh is soft and supple. She can dorsiflex and plantarflex her foot appropriately. LABORATORY DATA: Hemoglobin 9.3. Hematocrit 28.4. Electrolytes are stable. ASSESSMENT: A 58-year-old white female postop day 1 from a left hip replacement, doing pretty well. Her pain is controlled. Hip is located. She is neurologically intact. She is anemic, but without symptoms. PLAN: 1. DVT prophylaxis including thigh-high TEDs, SCDs and aspirin twice a day. 2. PT/OT. Weight bear as tolerated. Left total hip protocol. 3. Pain control, doing well with current pain regimen. 4. Anemia. Will continue iron supplementation. 5. Disposition: Plan to discharge to home. She is hoping to go without home health. We will see how she does in therapy today.
--- NOTE | 2018-11-29 17:03 | Anesthesiology Progress Note ---
Date of Service November 29, 2018 Anesthesia Post Procedure Vital Signs Vital Signs: Temp Pulse Resp BP BP Pulse Ox 11/29/18 14:54 36.5 C 63 18 101/66 96 11/29/18 12:00 36.6 C 76 16 105/67 96 11/29/18 07:13 36.7 C 62 15 96/61 L 96 11/29/18 04:05 36.6 C 56 L 16 96/57 L 95 11/28/18 23:50 18 97 11/28/18 23:15 36.7 C 63 18 101/66 97 11/28/18 22:50 18 93 11/28/18 21:50 18 93 11/28/18 21:25 61 137/76 100/63 11/28/18 20:50 18 95 11/28/18 19:50 18 97 11/28/18 19:47 36.6 C 66 16 104/65 98 11/28/18 18:45 18 98 11/28/18 17:45 18 98 Pain Intensity Left Hip: Pain Intensity: 7 Transfer of Care Handoff Completed per policy Notes Mental Status: alert / awake / arousable Patient Amnestic to Procedure: Yes Nausea / Vomiting: adequately controlled Pain: adequately controlled Airway Patency, RR, SpO2: stable & adequate BP & HR: stable & adequate Hydration State: stable & adequate Neuraxial Anesthesia: was administered and sensory block resolved Anesthetic Complications: no major complications apparent and Pt Satisfied with anesthetic care
[2018-11-29] MEDS: PROPRANOLOL HCL 60 MG LA CAP PO SCH (21:40)
[2018-11-29] MEDS: NORTRIPTYLINE HCL 25 MG CAP PO SCH (21:40)
[2018-11-29] MEDS: SENNA 8.6 MG TAB PO SCH (21:40)
[2018-11-29] MEDS: PANTOprazole 40 MG TAB PO SCH (21:40)
[2018-11-29] MEDS: ATORVASTATIN 20 MG TAB PO SCH (21:40)
[2018-11-30 05:39] LABS: Basophils # (auto) 0.02 K/uL (0-0.2); Basophils % (auto) 0.4 %; Eosinophils # (auto) 0.07 K/uL (0-0.5); Eosinophils % (auto) 1.5 %; Hematocrit (blood only) 27.3 % (37-47); Immature Granulocytes # (auto) 0.01 K/uL (0.00-0.02); Immature Granulocytes % (auto) 0.2 %; Lymphocytes # (auto) 1.58 K/uL (1.2-3.4); Lymphocytes % (auto) 32.9 %; Mean Corpuscular Volume 88.9 fL (80-100); Mean Platelet Volume 9.2 fL (7.4-10.4); Monocytes # (auto) 0.34 K/uL (0.11-0.59); Monocytes % (auto) 7.1 %; Neutrophils # (auto) 2.78 K/uL (1.4-6.5); Neutrophils % (auto) 57.9 %; Platelet Count 147 K/uL (130-400); RDW Coefficient of Variation 12.7 % (11.5-14.5); RDW Standard Deviation 41.2 fL (36.4-46.3); Red Blood Count 3.07 M/uL (4.2-5.4)
[2018-11-30] MEDS: ACETAMINOPHEN 500 MG TAB PO SCH (06:20)
[2018-11-30] MEDS: KETOROLAC 30 MG/ML VIAL IV SCH (06:21)
[2018-11-30] MEDS: DOCUSATE SODIUM 100 MG CAP PO SCH (07:36)
[2018-11-30] MEDS: FERROUS GLUCONATE 324 MG TAB PO SCH (07:36)
[2018-11-30] MEDS: ASPIRIN 81 MG ECTAB PO SCH (07:36)
[2018-11-30] MEDS: CHECK SCOPOLAMINE PATCH PLACEMENT SCH (07:36)
[2018-11-30] MEDS: MULTIVITAMIN TAB PO SCH (07:36)
[2018-11-30] MEDS: ASCORBIC ACID 500 MG TAB PO SCH (07:36)
[2018-11-30] MEDS: INSULIN ASPART 100 UNITS/ML 3 ML PEN SC SCH (07:41)
--- NOTE | 2018-11-30 08:01 | Progress Note ---
DATE: 11/30/2018 SUBJECTIVE: A 58-year-old white female postop day 2 from a left hip replacement. She is doing pretty well. Therapy went well. Pain is controlled. Feels ready to go home. OBJECTIVE: VITAL SIGNS: Temperature 36.7. Vital signs stable. PHYSICAL EXAMINATION: GENERAL: Physical examination shows a pleasant, middle-aged female. She is sitting up in her bedside chair eating breakfast. Looks reasonably comfortable. EXTREMITIES: Examination of the left hip reveals the dressing to be clean, dry and intact. Leg lengths were equal. Hip is located. Dressing is clean, dry and intact. Thigh is soft and supple. She is neurologically intact. ASSESSMENT: A 58-year-old white female postop day 2 from left hip replacement, doing well. Pain is controlled. Hip is located. She is neurologically intact. PLAN: 1. DVT prophylaxis including thigh-high TEDs, SCDs, and aspirin twice a day. 2. PT/OT. Weight bear as tolerated. Left total hip protocol. 3. Pain control, doing well with current pain regimen. 4. Disposition: Plan to discharge to home after therapy today.
[2018-11-30] MEDS: TAPENTADOL HCL ER 50 MG TABCR PO SCH (09:14)
--- NOTE | 2018-12-05 16:54 | Discharge Summary ---
ADMITTING PHYSICIAN AND SURGEON: Dr. Larry Dyson. ADMITTING DIAGNOSIS: Left hip degenerative joint disease. SURGERY PERFORMED: Left total hip arthroplasty. SECONDARY DIAGNOSES: Diabetes, elevated cholesterol, gastroesophageal reflux disease, obesity, back pain. CONSULTS: None obtained. HISTORY AND PHYSICAL EXAMINATION: Well documented in the patient's chart. HOSPITAL COURSE: The patient was admitted on 11/28/2018 underwent total hip arthroplasty. She tolerated the procedure well. There were no complications. She was transferred to the PACU postoperatively and later to the orthopedic for further care. She was given Ancef for antibiotic prophylaxis, ANALIA stockings, SCDs and aspirin for DVT prophylaxis. Hemoglobin, hematocrit and vital signs were monitored during her hospital stay and remained stable. She developed some postoperative anemia, hemoglobin down to 9.0, did not require any blood transfusions. She did receive an iron supplement. There were no complications. By postoperative day 2, she was tolerating a diabetic diet. Pain was controlled with oral pain medicine. She was participating in physical therapy. Postop day 2, she was discharged home. She was given printed discharge instructions as well as new prescriptions for extra strength Tylenol, aspirin, iron supplement and oxycodone. Continue her home medications, continue physical therapy, weightbearing as tolerated, ANALIA stockings, total hip precautions. Follow up approximately 2 weeks postop or sooner if there are any problems or concerns.
== END 2018-11-30 10:10 | disposition home or self-care (01) | DRG 470 ==
LOC: ASU 04:46 → 3E 10:55

== ENCOUNTER 2019-03-18 06:25 | Inpatient (IN) ==
[2019-02-23 16:50] LABS: Basophils # (auto) 0.06 K/uL (0-0.2); Basophils % (auto) 1.1 %; Eosinophils # (auto) 0.51 K/uL (0-0.5); Eosinophils % (auto) 9.1 %; Hematocrit (blood only) 37.6 % (37-47); Immature Granulocytes # (auto) 0.01 K/uL (0.00-0.02); Immature Granulocytes % (auto) 0.2 %; Lymphocytes % (auto) 37.4 %; Mean Corpuscular Hemoglobin 27.6 pg (25-34); Mean Corpuscular Hgb Conc 31.9 g/dL (32-36); Mean Corpuscular Volume 86.6 fL (80-100); Mean Platelet Volume 9.8 fL (7.4-10.4); Monocytes # (auto) 0.26 K/uL (0.11-0.59); Monocytes % (auto) 4.6 %; Neutrophils # (auto) 2.67 K/uL (1.4-6.5); Neutrophils % (auto) 47.6 %; Platelet Count 208 K/uL (130-400); RDW Coefficient of Variation 13.3 % (11.5-14.5); RDW Standard Deviation 42.4 fL (36.4-46.3); Red Blood Count 4.34 M/uL (4.2-5.4); White Blood Count 5.61 K/uL (4.8-10.8)
[2019-02-23 16:59] LABS: Partial Thromboplastin Ratio 0.9; Partial Thromboplastin Time 24.4 Seconds (21.0-31.0); Prothrombin Time 10.3 Seconds (9.0-12.0)
[2019-02-23 17:18] LABS: BUN Creatinine Ratio 16.3 (10-20); Blood Urea Nitrogen 15 mg/dl (7-18); C Reactive Protein 0.39 mg/dl (0-0.29); Calcium 9.5 mg/dl (8.5-10.1); Carbon Dioxide 25 mmol/L (21-32); Chloride 107 mmol/L (98-107); Est GFR (African American) 82.8; Est GFR (Non-African American) 71.4; Glucose 102 mg/dl (70-99); Potassium 4.2 mmol/L (3.5-5.1); Sodium 141 mmol/L (136-145)
[2019-02-24 06:34] LABS: Estimated Average Glucose 143 mg/dl; Hemoglobin A1C 6.6 % (4.5-5.6)
--- NOTE | 2019-03-03 10:04 | Anesthesiology Consultation ---
Date of Service March 03, 2019 Assessment & Plan (1) Encounter for pre-operative examination: Chart Review Chart Review: Acceptable Risk for Surgery and Patient NOT seen in Pre Admission Testing Consults Requested none History Surgery Operation Date: 03/18/19 09:05 Proposed Procedures p Right Total Hip Replacement - Larry Dyson MD Height/Weight Height: 5 ft 7 in Weight: 109.769 kg Allergies Allergy/AdvReac Type Severity Reaction Status Date / Time No Known Allergies Allergy Verified 02/16/19 15:16 Medications Home Medications Medication Instructions Recorded Confirmed Last Taken atorvastatin 20 mg PO HS 11/06/18 02/16/19 11/27/18 22:00 diclofenac sodium 75 mg PO BID 11/06/18 02/16/19 11/17/18 20:00 docusate sodium [Stool Softener] 100 mg PO BID 11/06/18 02/16/19 11/27/18 22:00 metformin 850 mg PO BID 11/06/18 02/16/19 11/27/18 22:00 nortriptyline 25 mg PO HS 11/06/18 02/16/19 11/27/18 22:00 omeprazole 40 mg PO HS 11/06/18 02/16/19 11/27/18 22:00 propranolol 120 mg PO HS 11/06/18 02/16/19 11/27/18 22:00 ranitidine HCl 300 mg PO QA 11/06/18 02/16/19 11/27/18 08:00 Past Medical History Medical History Acid reflux Diabetes mellitus, type 2 Fatty liver High cholesterol History of back problems HX 2 BULGING DISCS AND INJECTIONS 19 YR AGO Migraine Obesity Snores LOUD, PT REPORTS SLEEP STUDY WAS SUGGESTED BUT NOT COMPLETED Past Family History Family History Father Family history of renal cancer Family history of bladder cancer Family history of diabetes mellitus Aunt Family history of skin cancer Family history of breast cancer in mother Mother Family history of diabetes mellitus Brother Family history of diabetes mellitus Past Surgical History Surgical History History of anesthesia reaction BP DROPPED WITH LAST HIP SURGERY (EXTENDED TIME IN RECOVERY ROOM). History of cholecystectomy History of colonoscopy History of endoscopy History of total hip arthroplasty LEFT 11/28/2018. SAB. Required atropine, marta and glyco for brief bradycardia and hypotension. History of tubal ligation Social History Smoking Status: Never smoker Do You Dip or Chew Tobacco: No Hx Alcohol Use: No Hx Substance Use: No substance use type: does not use Testing Laboratory Results 02/23/19 15:31 02/23/19 15:31 PT 10.3 Seconds (9.0-12.0) 02/23/19 15:31 INR 1.0 (0.9-1.1) 02/23/19 15:31 APTT 24.4 Seconds (21.0-31.0) 02/23/19 15:31 Hemoglobin A1c 6.6 % (4.5-5.6) H 02/23/19 15:31 Blood Type B Positive 02/23/19 15:32 Antibody Screen NEGATIVE 02/23/19 15:32 Electrocardiogram Date: 11/10/18 Findings: + NSR @ (62) Normal ECG. Chest X-Ray Date: 11/10/18 TWO VIEW CHEST CLINICAL HISTORY: Preoperative examination. FINDINGS: PA and lateral chest radiographs are obtained. No prior studies are available for comparison at the time of dictation. The cardiomediastinal silhouette is unremarkable. The lungs and pleural spaces are clear. There is no pneumothorax. The bony thorax appears intact. Surgical clips are noted in the upper abdomen. IMPRESSION: No active disease in the chest
--- NOTE | 2019-03-14 18:36 | History and Physical Report ---
DATE OF ADMISSION: 03/18/2019 CHIEF COMPLAINT: Persistent right hip pain. HISTORY OF PRESENT ILLNESS: A 58-year-old female who is now about 3-1/2 months out from a left total hip replacement, presents for treatment of her right hip. The left hip is doing great. Minimal pain. She is back to most activities but limited more by her right hip. It has gradually gotten worse over time. The more she walks, the more it hurts. She has difficulty putting her shoes and socks on. She has taken diclofenac without much relief. She now would like to have her right hip fixed. PAST MEDICAL HISTORY: 1. Diabetes x1 year. 2. Elevated cholesterol. 3. Gastroesophageal reflux disease. 4. Obesity, BMI of 38. 5. Low back pain. PAST SURGICAL HISTORY: Include: 1. Tubal ligation. 2. Cholecystectomy. 3. Left total hip replacement done 11/28/2018. ALLERGIES: None. CURRENT MEDICINES: Include: 1. Ranitidine. 2. Diclofenac. 3. Metformin. 4. Stool softener. 5. Lipitor. 6. Propranolol. 7. Nortriptyline. 8. Omeprazole. SOCIAL HISTORY: A 58-year-old female. She is from [place]. 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 Does not smoke. FAMILY HISTORY: Breast cancer, renal cancer and diabetes. REVIEW OF SYSTEMS: Significant for diabetes for the past 8 years with A1c of 6.6. Denies any chest pain or shortness of breath. No history of DVT or PE. No known bleeding problems. PHYSICAL EXAMINATION: GENERAL: Shows a pleasant, middle-aged female. Looks to be in pretty good health. HEENT: Benign. NECK: Supple, no lymphadenopathy. LUNGS: Clear to auscultation. HEART: Regular rate and rhythm. ABDOMEN: Soft, nontender, nondistended. EXTREMITIES: Grossly neurovascularly intact except as follows: Examination of the right hip and leg reveals the patient walks with a bit of a limp. She has a very stiff hip. She has about 0.5 cm short on the right side compared to the left. She can internally rotate to neutral at best and it recreates pain. Negative straight leg raise. She is neurologically intact. Examination of the left hip reveals a well-healed incision. She has no pain with hip motion. She is neurologically intact. X-RAYS: The right hip reveal advanced right hip DJD. She has complete loss of her joint space. She has cystic change of the femoral head and acetabulum. The left hip replacement looks to be in good position. ASSESSMENT: A 58-year-old white female labor, 3-1/2 months out from a left hip replacement with advanced right hip degenerative joint disease. Very happy with the left hip and would like to have her right hip replaced. PLAN: We are going to take her to the operating room and do a right total hip replacement. The risks and benefits of this procedure were explained to the patient including but not limited to DVT, PE, , infection, neurological injury, vascular injury, bleeding problem, pain, limited range of motion, stiffness, failure to relieve symptoms, incomplete relief of symptoms, need for further surgery in future, fracture, leg length inequality, nerve palsy, persistent pain, dislocation, need for blood transfusion, etc. The patient understands and desires then proceed. Informed consent was obtained.
[~2019-03-18 06:25] MED LIST changes: +ACETAMINOPHEN 500 MG TAB PO SCH; -ASCO500T16 PO; -ATOR-22 PO; +CEFAZOLIN 3000MG 72.5 ML IV SCH; -CEFAZOLIN 3000MG IV PUSH 22.5 ML IV SCH; -CHOL1000 PO; +FAMOTIDINE 20 MG TAB PO SCH; +GABAPENTIN 600 MG DOSE PO SCH; -INDSR/120 PO; -LACTATED RINGER'S 1000ML 1,000 ML IV SCH; +LR 500ML BOLUS, THEN 15ML/HR IV SCH; +LR 60ML/HR IV SCH; +METOCLOPRAMIDE HCL 10 MG TABLET PO SCH; -NORT25CA PO; -PRLSR20 PO; -RANI300T2 PO; +SCOPOLAMINE 1.5 MG TDSY TD SCH; -SENNTAB13 PO; -SUMA100T16 PO; -TRAM-10 PO; +TRANEXAMIC ACID 1,000 MG **IV Pre-op IV SCH; -VLT75 PO
[2019-03-18] MEDS ORDERED: BUPIVACAINE 0.5 % 5 MG/1 ML PF 10ML VIAL ONE (06:27)
--- NOTE | 2019-03-18 07:01 | History & Physical Bridge Note ---
Date of Service March 18, 2019 History & Physical Bridge Note I have examined the patient, reviewed the History & Physical and in the interval since the performance of the History & Physical I have noted the following changes of clinical significance: no changes noted
[2019-03-18] MEDS ORDERED: BUPIVACAINE/EPINEPHRINE 0.5% MPF 1:200,000 30 ML VIAL ONE (07:07)
[2019-03-18] MEDS ORDERED: BACITRACIN INJ 50,000 UNIT VIAL ONE (07:07)
[2019-03-18] MEDS ORDERED: PROPOFOL IV EMULSION 10 MG/ML 20 ML VIAL IV ONE (07:56)
[2019-03-18] MEDS ORDERED: LIDOCAINE HCL 2% 2 ML VIAL/AMP(20MG/ML) INFIL ONE (07:56)
[2019-03-18] MEDS ORDERED: MIDAZOLAM HCL 1 MG/ML 2ML VIAL ONE (07:56)
[2019-03-18] MEDS ORDERED: ONDANSETRON INJ 2 MG/ML 2 ML VIAL ONE (07:56)
[2019-03-18] MEDS ORDERED: ePHEDrine sulfate 50 MG/ML AMP IV PRN (08:09)
[2019-03-18] MEDS ORDERED: ATROPINE SULFATE 0.1 MG/ML 10ML SYR IV PRN (08:09)
[2019-03-18] MEDS ORDERED: fentaNYL citrate 100 MCG/2 ML VIAL IV PRN (08:09)
[2019-03-18] MEDS ORDERED: ONDANSETRON INJ 2 MG/ML 2 ML VIAL IV PRN ×2 (08:09→12:44)
[2019-03-18] MEDS ORDERED: ePHEDrine sulfate 50 MG/ML SYR ONE (10:01)
[2019-03-18] MEDS ORDERED: GLYCOPYRROLATE 0.2 MG/ML VIAL ONE (10:16)
[2019-03-18] MEDS ORDERED: fentaNYL citrate 100 MCG/2 ML VIAL ONE (10:27)
--- NOTE | 2019-03-18 11:06 | Post Operative Brief Note ---
PG Immediate Post Op with CF Date of Surgery March 18, 2019 Pre & Post Diagnosis Operation Date: 03/18/19 09:05 Pre-Op Diagnosis: Rigth Hip Degenerative Joint Disease Post-Op Diagnosis: Rigth Hip Degenerative Joint Disease Procedure Operation Date: 03/18/19 09:05 Actual Procedures p Right Total Hip Replacement(Right) - Larry Dyson MD Surgeon Larry Dyson MD Spinning [employer] Stefani, PAC Estimated Blood Loss 250 Findings Consistent with Post-Op Diagnosis Fluids 1500 cc Specimens Specimen Description: A. Right Femoral Head Drains [place] Catheter Anesthesia Type Spinal MAC Complications none Disposition Accompanied Patient To Recovery: Yes Disposition: Recovery Room
--- NOTE | 2019-03-18 11:35 | XRay Report ---
XR hip 1V RT w pelvis HISTORY: 58 years-old Female IN PACU - A/P PELVIS and LATERAL HIP right hip total joint arthroplast y COMPARISON: Pelvis and left hip radiograph 11/28/2018, pelvic radiograph 01/15/2019. TECHNIQUE: AP view of the pelvis with 2 views of the right hip FINDINGS: Limited exam secondary to patient body habitus. Left hip total joint arthroplasty redemonstrated in s atisfactory alignment.] Total joint arthroplasty is also present which appears to be in satisfactory alignment without acute fracture or retained foreign body. Expected postsurgical soft tissue swelling and deep tissue air lateral to the right hip. Osteophytic spurring versus bone fragment measuring 1. 8 cm projects inferior to the right acetabulum and appears unchanged from comparison studies. Lateral skin ty. IMPRESSION: Satisfactory alignment of the right hip total joint arthroplasty. The above report was generated using voice recognition software. It may contain grammatical, syntax o r spelling errors. Electronically signed by: Jim Kenyon M.D. 03/18/2019 11:33 AM
--- NOTE | 2019-03-18 11:45 | Anesthesiology Progress Note ---
Date of Service March 18, 2019 Anesthesia Post Procedure Vital Signs Vital Signs: Temp Pulse Pulse Resp BP Pulse Ox 03/18/19 11:35 70 14 101/68 99 03/18/19 11:25 73 14 104/66 96 03/18/19 11:15 76 16 105/68 97 03/18/19 11:08 36 C L 77 16 105/66 97 03/18/19 07:15 36.9 C 71 18 133/73 98 Transfer of Care Handoff Completed per policy Notes Mental Status: alert / awake / arousable and participated in evaluation Patient Amnestic to Procedure: Yes Nausea / Vomiting: adequately controlled Pain: adequately controlled Airway Patency, RR, SpO2: stable & adequate BP & HR: stable & adequate Hydration State: stable & adequate Anesthetic Complications: no major complications apparent and Pt Satisfied with anesthetic care
[2019-03-18] MEDS ORDERED: PHARMACY GLYCEMIC MGMT CONSULT STA (12:44)
[2019-03-18] MEDS ORDERED: GLUCOSE 40% GEL 15 GM TUBE PO PRN (12:44)
[2019-03-18] MEDS ORDERED: GLUCAGON FOR INJ 1 MG VIAL SQ PRN (12:44)
[2019-03-18] MEDS ORDERED: MAGNESIUM HYDROXIDE SUSP 30 ML UDC PO PRN (12:44)
[2019-03-18] MEDS ORDERED: DEXTROSE 50% 50 ML SYRINGE IV PRN (12:44)
[2019-03-18] MEDS ORDERED: METOCLOPRAMIDE HCL INJ 5 MG/ML 2 ML VIAL IV PRN (12:44)
[2019-03-18] MEDS ORDERED: HYDROmorphone INJ 0.5 MG/0.5 ML SYR IV PRN (12:44)
[2019-03-18] MEDS ORDERED: ALUMINUM/MAGNESIUM SUSP 30 ML UDC PO PRN (12:44)
[2019-03-18] MEDS ORDERED: GLUCOSE 10 TABS/TUBE PO PRN (12:44)
[2019-03-18] MEDS ORDERED: bisacodyL 10 MG SUPP PR PRN (12:44)
[2019-03-18] MEDS ORDERED: CARBOHYDRATES FOR HYPOGLYCEMIA PO PRN (12:44)
[2019-03-18] MEDS ORDERED: TRAMADOL HCL 50 MG TABLET PO PRN (12:44)
[2019-03-18] MEDS ORDERED: NALOXONE HCL 0.4 MG/1 ML VIAL/CARP IV PRN (12:44)
[2019-03-18] MEDS ORDERED: PHARMACY GLYCEMIC MGMT CONSULT SCH (13:05)
--- NOTE | 2019-03-18 13:08 | Pharmacy Report ---
Glycemic Control Consultation - Date of Service March 18, 2019 - Scope Scope: Glycemic Pharmacist consulted for glycemic control and to write orders per [facility] inpatient glycemic control protocol - Objective Weight: 111.2 kg Accuchecks BSG (last 24hrs): 03/18/19 03/18/19 03/18/19 07:16 11:10 11:38 POC Glucose 115 H 153 H 139 H 03/18/19 12:45 POC Glucose 96 HbA1c: Hemoglobin A1c 6.6 % (4.5-5.6) H 02/23/19 15:31 - Recent Pertinent Medications Outpatient Anti-diabetic Regimen: * Metformin Risk Factors for Insulin Resistance: * Recent Surgery * Diet - Assessment & Plan Assessment & Plan: ASSESSMENT: * 58yo T2DM female with excellent outpatient control per recent A1c * Pt is maintained on oral antidiabetic agents as an outpatient * Oral agents are not recommended for inpatient use d/t drug interactions, changing PO intake, and difficulty titrating for acute hyper/hypoglycemia. ADA recommends re-initiating outpatient oral agents 1-2 days prior to discharge if/when appropriate if they were held on admission. * Will hold oral agents for admission and utilize SQ basal bolus insulin regimen which is the recommended regimen for inpatient glycemic control. * Will initiate weight based insulin dosing for insulin samantha patient and titrate based on BSG trends. * Basal insulin likely not needed based on A1c and pre-post op BSGs around or under 150 mg/dl * Goal is to maintain BSGs <200 mg/dl (ideally <150 mg/dl) to prevent post op complications PLAN FOR INPATIENT GLYCEMIC CONTROL: * Holding outpatient oral diabetes medications * Basal insulin * Not needed, will start if BSG >180 * Bolus insulin * NovoLog per scale ACHS or Q6hrs while NPO * Goal Range: Low 110 mg/dL - High 140 mg/dL * Correction Factor: 40 mg/dL/unit * Nutritional / Prandial insulin per carb ratio of 1 unit per 15 grams CHO consumed * Please note that the plan above was derived based on current level of insulin resistance and hospital stress. These recommendations are appropriate for inpatient admission only. Plan of care upon discharge will need to be reassessed to avoid potential outpatient hypo/hyperglycemia. Thank you.
[2019-03-18] MEDS: KETOROLAC 30 MG/ML VIAL IV SCH ×2 (13:24→19:58)
[2019-03-18] MEDS: SODIUM CHLORIDE 0.9% 1000ML 1,000 ML IV SCH ×2 (13:24→22:48)
[2019-03-18] MEDS ORDERED: INFLUENZA ADMINISTRATION CHARGE ONE (15:00)
[2019-03-18] MEDS ORDERED: INFLUENZA VIRUS QUAD VACCINE 0.5 ML SYR IM ONE (15:00)
[2019-03-18] MEDS ORDERED: TRANEXAMIC ACID 1,000 MG in 0.9 % SODIUM CHLORIDE 100 ML IV ONE (17:00)
--- NOTE | 2019-03-18 17:19 | Operative Report ---
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 She had grade 4 [id number] disease of the femoral head and acetabulum. She had a moderate- sized anterior osteophyte. Extensive osteophytes around the acetabulum. Moderate sized joint effusion. Fluids 1500 cc Specimens Right femoral head sent for pathology. Anesthesia Type Spinal MAC Complications none Disposition Accompanied Patient To Recovery: Yes Indications 58-year-old female with a long history of bilateral hip pain discomfort. She been through extensive conservative treatment the past which became unsuccessful. She had a left hip replaced about 3 and half months ago and has done excellent from this. She continues to be limited by right hip pain. X- rays show advanced right hip DJD. She like to proceed with surgical treatment. Description of Procedure Operative implants consisted of: 1. Biomet size 50 G7 acetabular shell. 2. 6.5 cancellus acetabular screws 135 mm in length and 125 mm length. 3. Highly currently splint polyethylene liner with a 50 mm outer diameter, 32 mm diameter with a flowers placed inferior and posterior. 4. An apex hole eliminator. 5. [place] size 10 KLA femoral stem. 6. +5/32 mm ceramic articular ball. Patient was taken to the operating room identified and placed on the operating table in the supine position. All contact areas were appropriately padded. A spinal anesthetic had been implemented in the holding area. A Hatfield cath was placed in sterile fashion. The patient was then placed in the left lateral decubitus position. Next label was placed per the Stulberg hip positioner was used for positioning. The right hip and leg were then prepped and draped in usual sterile fashion. A posterior lateral approach to the right hip was then performed to a curvilinear incision centered over the greater trochanter. Sharp passes cut through subtenons tissue down to level the IT band gluteal fascia. The IT band gluteal fascia then incised longitudinally in line with the skin incision. The underlying greater trochanteric bursa was excised. The piriformis and external rotators were tagged and taken off the posterior aspect of the hip joint capsule. Great care was taken throughout the procedure to protect the sciatic nerve at all times. Posterior capsulotomy was then performed in the large flap for later repair. Hip was internally rotated and dislocated. A femoral neck osteotomy cut was made with Final Cut about 6 mm above the lesser trochanter. Femoral head was removed and sent for pathology. The femur was retracted anteriorly. Attention turned the acetabulum. The acetabular labrum was excised. The pulmonary fat was excised. Sequential reaming the acetabulum was then performed beginning with a size 43 and progressing up to 49. A 50 mm Biomet G7 acetabular shell was then placed in about 40 degrees lateral opening at 20 degrees of anteversion. It was fixed with two 6.5 cancellus acetabular screws. Trial liner was placed. Anterior osteophyte was removed. Attention down the femur. The proximal femur and the end with a cookie cutter followed by canal finder. Sequential broaching of the femur was then performed given the size 8 and progressing up to a 10. Her cancellus bone was excellent and we got an excellent fitted a size 10. The calcar reamer was used to smooth off the calcar. Hip was then tried in the +5 articular ball provided appropriate soft tissue tension and equal leg lengths. Hip was stable to full extension and external rotation flexion to 90 degrees internal rotation about 50 degrees. I did replace elect to place a flowers inferior and posterior to maximize the stability in flexion. We elect to place these implants. All trial implants were removed. The apex hole eliminator was placed but highly cross-link polyethylene liner with a placed inferior and posterior was then placed. A [place] size 10 KLA femoral stem was then placed. A +5/32 mm ceramic articular ball was placed. Hip was located once again found to be stable. Attention turned to closing. Wounds irrigated cups amounts of pulsatile lavage solution. I did inject locally with 60 cc of half percent Marcaine with epinephrine. The posterior capsule and external rotators were then repaired through drill holes in the posterior aspect of the greater trochanter with #2 Tycron suture. The IT band medial fascia then closed with #1 PDS suture running fashion. Subcutaneous tissues then closed 2 layers with a deep layer #2 Vicryl suture in a buried interrupted fashion. The subcutaneous tissue was then closed with 2-0 Dexon suture in a buried interrupted fashion. Skin was then closed with skin ty. Leg was then cleaned dried a sterile dressing with Xeroform 4 x 4 sterile ABD pad and foam Tape was applied. The patient was then transferred to the recovery room in stable condition. Patient tolerated the procedure well no complications. I attest to the content of the Intraoperative Record and any orders documented therein. Any exceptions are noted below.
[2019-03-18] MEDS: CHECK SCOPOLAMINE PATCH PLACEMENT SCH (17:29)
[2019-03-18] MEDS: FERROUS GLUCONATE 324 MG TAB PO SCH (17:30)
[2019-03-18] MEDS: ASCORBIC ACID 500 MG TAB PO SCH (17:30)
--- NOTE | 2019-03-18 17:45 | Progress Note ---
DATE: 03/18/2019 SUBJECTIVE: A 58-year-old white female postop from a right hip replacement. She is doing well. Not having any pain yet. No chest pain or shortness of breath. Not feeling dizzy or lightheaded. OBJECTIVE: VITAL SIGNS: Temperature 36.4. Vital signs stable. GENERAL: Reveals a healthy, pleasant middle-aged female. She is sitting up in bed, looks comfortable. LUNGS: Clear to auscultation. HEART: Regular rate and rhythm. ABDOMEN: Soft, nontender, nondistended. EXTREMITIES: Grossly neurovascularly intact except as follows: Examination of the right lower extremity reveals the leg lengths to be equal. Hip is located. Dressing is clean, dry and intact. Thigh is soft and supple. She is neurologically intact. She can dorsiflex and plantarflex her foot appropriately. X-RAYS: X-rays of the right hip from recovery room reviewed. It shows right uncemented total hip replacement. Components looked to be in good position. No signs of problems. ASSESSMENT: A 58-year-old white female postop from right hip replacement, doing well. Pain is controlled. Hip is located. She is neurologically intact. PLAN: 1. DVT prophylaxis including thigh-high TEDs, SCDs, and aspirin twice a day. 2. PT/OT. Weight bear as tolerated. Right total hip protocol. 3. Pain control, doing pretty well with current pain regimen. 4. IV antibiotics x24 hours. 5. Disposition: Plan to discharge to home with some home health once adequately recovered.
[2019-03-18] MEDS: CEFAZOLIN 2000MG 2,000 MG/15 ML SYR IV SCH (18:19)
[2019-03-18] MEDS: INSULIN ASPART 100 UNITS/ML 3 ML PEN SC SCH ×2 (18:29→22:29)
[2019-03-18] MEDS ORDERED: PANTOprazole 40 MG TAB PO SCH (21:00)
[2019-03-18] MEDS ORDERED: PROPRANOLOL HCL 60 MG LA CAP PO SCH (21:00)
[2019-03-18] MEDS ORDERED: ATORVASTATIN 20 MG TAB PO SCH (21:00)
[2019-03-18] MEDS ORDERED: DOCUSATE SODIUM 100 MG CAP PO SCH (21:00)
[2019-03-18] MEDS ORDERED: SENNA 8.6 MG TAB PO SCH (21:00)
[2019-03-18] MEDS ORDERED: NORTRIPTYLINE HCL 25 MG CAP PO SCH (21:00)
[2019-03-18] MEDS: ASPIRIN 81 MG ECTAB PO SCH (21:26)
[2019-03-18] MEDS: DOCUSATE SODIUM 100 MG CAP PO SCH (21:26)
[2019-03-18] MEDS: ACETAMINOPHEN 500 MG TAB PO SCH (21:27)
[2019-03-19] MEDS: CEFAZOLIN 2000MG 2,000 MG/15 ML SYR IV SCH (00:27)
[2019-03-19] MEDS: CHECK SCOPOLAMINE PATCH PLACEMENT SCH (00:28)
[2019-03-19] MEDS: KETOROLAC 30 MG/ML VIAL IV SCH ×2 (02:51→07:00)
[2019-03-19] MEDS: ACETAMINOPHEN 500 MG TAB PO SCH (05:38)
[2019-03-19 06:32] LABS: Basophils # (auto) 0.02 K/uL (0-0.2); Basophils % (auto) 0.4 %; Eosinophils # (auto) 0.16 K/uL (0-0.5); Hematocrit (blood only) 30.6 % (37-47); Hemoglobin 10.1 g/dL (12.0-16.0); Lymphocytes % (auto) 22.8 %; Mean Corpuscular Volume 84.8 fL (80-100); Monocytes # (auto) 0.44 K/uL (0.11-0.59); Monocytes % (auto) 8.4 %; Neutrophils # (auto) 3.44 K/uL (1.4-6.5); Neutrophils % (auto) 65.4 %; Platelet Count 158 K/uL (130-400); RDW Coefficient of Variation 13.3 % (11.5-14.5); RDW Standard Deviation 41.4 fL (36.4-46.3); Red Blood Count 3.61 M/uL (4.2-5.4); White Blood Count 5.26 K/uL (4.8-10.8)
[2019-03-19] MEDS: FERROUS GLUCONATE 324 MG TAB PO SCH (06:59)
[2019-03-19] MEDS: ASCORBIC ACID 500 MG TAB PO SCH (06:59)
[2019-03-19 07:04] LABS: BUN Creatinine Ratio 9.3 (10-20); Calcium 8.3 mg/dl (8.5-10.1); Creatinine Clr Calc Pharmacy 81.3 ml/min; Est GFR (African American) 74.6; Est GFR (Non-African American) 64.4; Potassium 3.8 mmol/L (3.5-5.1)
--- NOTE | 2019-03-19 07:45 | Progress Note ---
DATE: 03/19/2019 SUBJECTIVE: A 58-year-old white female postop day 1 from right hip replacement. She is doing well. Had a good night. Pain is controlled. No chest pain or shortness of breath. Not feeling dizzy or lightheaded. OBJECTIVE: VITAL SIGNS: Temperature is 37.1. Vital signs stable. GENERAL: Physical examination shows a pleasant, middle-aged female. She is lying in bed and talking to her , looks quite comfortable. EXTREMITIES: Examination of the right hip reveals leg lengths to be equal. Dressing is clean, dry and intact. No significant drainage. Thigh is soft and supple. She is neurologically intact. LABORATORY DATA: Hemoglobin is 10.1. Hematocrit 30.6. Electrolytes are stable. ASSESSMENT: A 58-year-old white female postop day 1 from right hip replacement, doing well. Pain is controlled. Hip is located. She is neurologically intact. PLAN: 1. DVT prophylaxis including thigh-high TEDs, SCDs, and aspirin twice a day. 2. PT/OT. Weight bear as tolerated. Right total hip protocol. 3. Pain control, doing well with current pain regimen. 4. Disposition: She is hoping to be discharged to home today as she does in therapy.
[2019-03-19] MEDS: DOCUSATE SODIUM 100 MG CAP PO SCH (08:16)
[2019-03-19] MEDS: ASPIRIN 81 MG ECTAB PO SCH (08:16)
--- NOTE | 2019-03-19 08:28 | Anesthesiology Progress Note ---
Date of Service March 19, 2019 Anesthesia Post Procedure Vital Signs Vital Signs: Temp Pulse Pulse Resp BP Pulse Ox 03/19/19 07:37 36.9 C 62 16 108/71 96 03/19/19 02:41 37.1 C 76 14 109/70 96 03/18/19 23:47 37.3 C 80 16 105/70 97 03/18/19 19:24 36.9 C 69 17 116/76 96 03/18/19 15:36 36.4 C L 69 17 130/83 96 03/18/19 13:35 72 16 124/82 98 03/18/19 13:05 71 18 125/85 96 03/18/19 12:45 36.5 C 66 18 124/67 97 03/18/19 12:15 36.4 C L 69 14 94/70 L 97 03/18/19 12:05 68 14 95/69 L 96 03/18/19 11:55 68 14 100/73 96 03/18/19 11:45 36 C L 67 14 110/70 98 03/18/19 11:35 70 14 101/68 99 03/18/19 11:25 73 14 104/66 96 03/18/19 11:15 76 16 105/68 97 03/18/19 11:08 36 C L 77 16 105/66 97 Pain Intensity Right Hip: Pain Intensity: 0 Notes Mental Status: alert / awake / arousable and participated in evaluation Patient Amnestic to Procedure: Yes Nausea / Vomiting: adequately controlled Pain: adequately controlled Airway Patency, RR, SpO2: stable & adequate BP & HR: stable & adequate Hydration State: stable & adequate Neuraxial Anesthesia: was administered and sensory block resolved Anesthetic Complications: no major complications apparent
[2019-03-19] MEDS: INSULIN ASPART 100 UNITS/ML 3 ML PEN SC SCH (08:36)
[2019-03-19] MEDS ORDERED: MULTIVITAMIN TAB PO SCH (09:00)
[2019-03-19] MEDS ORDERED: METFORMIN HCL 850 MG TAB PO SCH (09:30)
--- NOTE | 2019-03-19 10:41 | Pharmacy Report ---
Pharmacy Glycemic Short Note 2 - Date of Service March 19, 2019 - Glycemic Short BSG Results (Last 24 hours): 03/18/19 03/18/19 03/18/19 11:10 11:38 12:45 Glucose POC Glucose 153 H 139 H 96 03/18/19 03/18/19 03/19/19 17:01 20:25 06:13 Glucose 122 H POC Glucose 126 H 114 H 03/19/19 08:17 Glucose POC Glucose 168 H OUTPATIENT ANTIDIABETIC REGIMEN: * Metformin 850 mg BID * A1c 6.6% on 02/23/19 ASSESSMENT: 03/19 * BSGs well controlled over the last 24 hours * Will transition back to oral diabetes medication in preparation for discharge 03/18 * 58yo T2DM female with excellent outpatient control per recent A1c * Pt is maintained on oral antidiabetic agents as an outpatient * Oral agents are not recommended for inpatient use d/t drug interactions, changing PO intake, and difficulty titrating for acute hyper/hypoglycemia. ADA recommends re-initiating outpatient oral agents 1-2 days prior to discharge if/when appropriate if they were held on admission. * Will hold oral agents for admission and utilize SQ basal bolus insulin regimen which is the recommended regimen for inpatient glycemic control. * Will initiate weight based insulin dosing for insulin samantha patient and titrate based on BSG trends. * Basal insulin likely not needed based on A1c and pre-post op BSGs around or under 150 mg/dl * Goal is to maintain BSGs <200 mg/dl (ideally <150 mg/dl) to prevent post op complications PLAN FOR INPATIENT GLYCEMIC CONTROL: * Resume metformin 850 mg BID * Bolus insulin * NovoLog per scale ACHS or Q6hrs while NPO * Goal Range: Low 110 mg/dL - High 140 mg/dL * Correction Factor: 40 mg/dL/unit * REMOVE carb ratio PLAN FOR DISCHARGE: * A1c of 6.6% is below goal of < 7% * Recommend to continue metformin on discharge
--- NOTE | 2019-03-21 03:34 | Discharge Summary ---
ADMITTING PHYSICIAN AND SURGEON: Dr. Larry Dyson. ADMITTING DIAGNOSIS: Right hip degenerative joint disease. SURGERY PERFORMED: Right total hip arthroplasty. SECONDARY DIAGNOSES: Diabetes, elevated cholesterol, gastroesophageal reflux disease, obesity, low back pain. CONSULTS: None obtained. HISTORY AND PHYSICAL EXAMINATION: Well documented in the patient's chart. HOSPITAL COURSE: The patient was admitted on 03/18/2019, underwent total hip arthroplasty, tolerated the procedure well. There were no complications. She was transferred to the PACU postoperatively and later to the orthopedic floor for further care. She was given Ancef for antibiotic prophylaxis, ANALIA stockings, SCDs and aspirin for DVT prophylaxis. Hemoglobin, hematocrit and vital signs were monitored during her hospital stay and remained stable, did not require any blood transfusions. There were no complications. By postoperative day 1, she was tolerating a diabetic diet. Pain was controlled with oral pain medicine. She was participating in physical therapy. By postop day 1, she was discharged home. She was given printed discharge instructions as well as new prescriptions for extra strength Tylenol, aspirin, iron supplement and tramadol. Continue her home medicines. Continue physical therapy, weightbearing as tolerated, ANALIA stockings, total hip precautions. Follow up in approximately 2 weeks postop or sooner if there are any problems or concerns.
== END 2019-03-19 12:51 | disposition home or self-care (01) | DRG 470 ==
LOC: ASU 06:25 → 3E 11:11